=== PATIENT | female | born 1995 | race Caucasian/White ===

== ENCOUNTER 2021-04-06 11:58 | Emergency (ER) | payer OTHER ==
[~2021-04-06] VITALS: Ht 175.3 cm; Wt 93.5 kg
[2021-04-06] MEDS ORDERED: OMEP40CA97 PO (12:40)
[2021-04-06 12:47] VITALS: BP 125/90
== END 2021-04-06 12:54 | disposition home or self-care (01) ==
LOC: M ED 11:58
DX: K21.9 Gastro-esophageal reflux disease without esophagitis (principal); G89.29 Other chronic pain; R68.84 Jaw pain; Z79.899 Other long term (current) drug therapy; F17.210 Nicotine dependence, cigarettes, uncomplicated

== ENCOUNTER → 2022-12-16 | Outpatient (REF) ==
[~2022-12-16] MED LIST: OMEP40CA4 PO
== END ==
LOC: M LAB 16:24
PROVIDERS: ATTEND Nurse Practitioner Adult Health
DX: Z02.89 Encounter for other administrative examinations (principal)

== ENCOUNTER 2024-03-07 23:00 | Emergency (ER) | payer OTHER ==
[~2024-03-07] VITALS: Ht 175.3 cm; Wt 80.1 kg
[2024-03-07 23:01] VITALS: BP 155/92; TEMP 97.2; O2SAT 97
== END 2024-03-08 02:46 | disposition left against medical advice (07) ==
LOC: M ED 23:00
DX: Z53.21 Procedure and treatment not carried out due to patient leaving prior to being seen by health care provider (principal)

== ENCOUNTER → 2025-06-01 | Outpatient (CLI) | payer OTHER | LOC: M PLAIMG 14:22 | PROVIDERS: ATTEND Internal Medicine | DX: M72.2 Plantar fascial fibromatosis (principal) ==